=== PATIENT | female | born 1945 | race Caucasian/White ===

== ENCOUNTER 2020-07-18 02:52 | Outpatient (CLI) | payer OTHER, SELFPAY ==
[2020-07-18 10:45] LABS: ALT 23 U/L (14-59); AST 14 U/L (15-37); Albumin 3.9 g/dL (3.4-5.0); Alkaline Phosphatase 52 U/L (46-116); Anion Gap 8.3 mmol/L (3-11); BUN 18 mg/dL (7-18); Bilirubin, Total 0.7 mg/dL (0.2-1.0); CO2 27.7 mmol/L (21.0-32.0); CREATININE 0.75 mg/dL (0.55-1.02); Calcium 8.9 mg/dL (8.5-10.1); Calculated LDL 150 mg/dL (<100); Chloride 104 mmol/L (98-107); Cholesterol 249 mg/dL (<200); Glucose 96 mg/dL (74-106); HDL Cholesterol 90 mg/dL (40-60); Potassium 4.2 mmol/L (3.5-5.1); Sodium 140 mmol/L (136-145); Total Protein 6.7 g/dL (6.4-8.2); Triglyceride 45 mg/dL (<150)
== END 2020-07-18 03:12 ==
DX: E78.5 Hyperlipidemia, unspecified (principal)
CPT/HCPCS: 36415; 80053; 80061

== ENCOUNTER 2021-07-25 04:31 | Outpatient (CLI) | payer MEDICARE, SELFPAY ==
[2021-07-25 10:18] LABS: ALT 45 U/L (14-59); AST 27 U/L (15-37); Albumin 3.7 g/dL (3.4-5.0); Alkaline Phosphatase 60 U/L (46-116); Anion Gap 6.7 mmol/L (3-11); BUN 17 mg/dL (7-18); Bilirubin, Total 0.3 mg/dL (0.2-1.0); CO2 29.3 mmol/L (21.0-32.0); CREATININE 0.7 mg/dL (0.55-1.02); Calcium 9.2 mg/dL (8.5-10.1); Calculated LDL 124 mg/dL (<100); Chloride 104 mmol/L (98-107); Cholesterol 213 mg/dL (<200); Glucose 105 mg/dL (74-106); HDL Cholesterol 79 mg/dL (40-60); Potassium 3.8 mmol/L (3.5-5.1); Sodium 140 mmol/L (136-145); Total Protein 6.4 g/dL (6.4-8.2); Triglyceride 52 mg/dL (<150)
== END 2021-07-25 04:32 | disposition home or self-care (01) ==
LOC: LBO 04:31
DX: E78.5 Hyperlipidemia, unspecified (principal); F41.9 Anxiety disorder, unspecified; Z13.1 Encounter for screening for diabetes mellitus; E78.00 Pure hypercholesterolemia, unspecified
CPT/HCPCS: 36415; 80053; 80061

== ENCOUNTER 2021-08-07 21:37 | Outpatient (REF) | payer MEDICARE, SELFPAY ==
[2021-08-07 22:14] LABS: Bilirubin Negative (Negative); Blood Trace-lysed (Negative); Clarity Cloudy (Clear); Glucose Negative (Negative); Ketones Negative (Negative); Leukocyte Esterase Large (Negative); Nitrite Negative (Negative); Urobilinogen 0.2 EU/dL (Up TO 0.2)
[2021-08-07 22:29] LABS: Magnesium 2.2 mg/dL (1.8-2.4); TSH (W/Ref FT4) 1.15 uIU/mL (0.36-3.74); Vitamin B12 794 pg/mL (193-986)
[2021-08-07 22:33] LABS: Bacteria Negative HPF (Negative); C & S Indicated? Yes; Casts Negative LPF (Negative); Crystals Many Amorphous HPF (Negative); Epithelial Cells Negative HPF (Negative); Mucus Negative (Negative); Other Cells Negative (Negative); RBC Negative HPF (0-2)
== END 2021-08-07 21:38 | disposition home or self-care (01) ==
LOC: LBN 21:37
DX: R41.3 Other amnesia (principal); F41.9 Anxiety disorder, unspecified; G47.00 Insomnia, unspecified; D51.8 Other vitamin B12 deficiency anemias
CPT/HCPCS: 81003; 81015; 82607; 83735; 84443; 87086

== ENCOUNTER 2021-08-11 00:21 | Outpatient (CLI) | payer MEDICARE, SELFPAY ==
--- NOTE | 2021-08-11 13:38 | DI.CT_ITS ---
Exam(s) CT BRAIN NECK CTA EXAM: CT BRAIN NECK CTA CLINICAL HISTORY: CONFUSION/MEMORY CHANGES, R41.0,R41.3. TECHNIQUE: Imaging Protocol: Axial CT angiography was performed with multi-slice acquisition and mu lti-planar and/or 3D reconstructions. CONTRAST MATERIAL: Intravenous: Omnipaque 350 Contrast volume:85 cc COMPARISON: No exams were available for comparison FINDINGS: CT Head W/O and W contrast: Ventricles and Extra axial spaces: Normal in size and morphology for the patient's age. Hemorrhage: None. Cerebral parenchyma: Mild atrophy and mild compensatory dilatation of the ventricles. Midline shift: None. Brainstem/Cerebellum: Normal. Calvarium: Normal. Visualized Paranasal sinuses/Mastoids: Clear. Soft Tissues: Unremarkable. Enhancement: Normal. CTA Brain W: Internal Carotid Arteries: Petrous: Normal. Cavernous: Normal. Cerebral: Normal. Middle Cerebral Arteries: Right: No aneurysm, occlusion or significant stenosis. Left: No aneurysm, occlusion or significant stenosis. Anterior Cerebral Arteries: Right: No aneurysm, occlusion or significant stenosis. Left: No aneurysm, occlusion or significant stenosis. Posterior cerebral Arteries: Right: No aneurysm, occlusion or significant stenosis. Left: No aneurysm, occlusion or significant stenosis. Vertebral Arteries: Right: No aneurysm, occlusion or significant stenosis. Left: No aneurysm, occlusion or significant stenosis. Basilar Artery: No aneurysm, occlusion or significant stenosis. CTA Neck W: Common Carotid: Right: No aneurysm, occlusion or significant stenosis. Left: No aneurysm, occlusion or significant stenosis. External Carotid: Right: No aneurysm, occlusion or significant stenosis. Left: No aneurysm, occlusion or significant stenosis. Internal Carotid: Right: No aneurysm, occlusion or significant stenosis. Left: No aneurysm, occlusion or significant stenosis. Vertebral Artery: Right: No aneurysm, occlusion or significant stenosis. Left: No aneurysm, occlusion or significant stenosis. Lung Apices: Normal. Bones: Normal. Soft Tissues: Normal. IMPRESSION: 1. Normal CTA examination of the [place]. 2. Unremarkable CT Head. 3. Normal CTA examination of the neck. RADIATION DOSE DELIVERED: 1,723.98mGy.cm Total DLP DATA REPOSITORY: All CT scans at this facility are submitted to the National Radiology Data Registry (NRDR) Dose Index Registry (DIR) with the [employer] (ACR). RADIATION OPTIMIZATION: All CT scans at this facility use at least one of these dose optimization te chniques: automated exposure control; mA and/or kV adjustment per patient size (includes targeted exa ms where dose is matched to clinical indication); or iterative reconstruction.
[2021-08-11] MEDS: Omnipaque 350 MG/ML 100 ML BTL 85 ML IJ (13:41)
== END 2021-08-11 00:41 ==
DX: R41.3 Other amnesia (principal); R41.89 Other symptoms and signs involving cognitive functions and awareness; F41.8 Other specified anxiety disorders
CPT/HCPCS: 70496; 70498; J3490

== ENCOUNTER → 2021-08-14 12:51 | Outpatient (BNVA) | payer MEDICARE, SELFPAY | PROVIDERS: Visit Provider Psychiatry & Neurology Neurology | DX: G30.9 Alzheimer's disease, unspecified (principal); F02.80 Dementia in other diseases classified elsewhere, unspecified severity, without behavioral disturbance, psychotic disturbance, mood disturbance, and anxiety; R63.4 Abnormal weight loss | CPT/HCPCS: 99204 ==

== ENCOUNTER → 2021-09-03 10:56 | Outpatient (BNVA) | payer MEDICARE, SELFPAY | PROVIDERS: Visit Provider Psychiatry & Neurology Neurology | DX: G30.9 Alzheimer's disease, unspecified (principal); F02.80 Dementia in other diseases classified elsewhere, unspecified severity, without behavioral disturbance, psychotic disturbance, mood disturbance, and anxiety; R63.4 Abnormal weight loss | CPT/HCPCS: 99214 ==

== ENCOUNTER 2021-09-19 02:20 | Emergency (ER) | payer MEDICARE, SELFPAY ==
[2021-09-19 02:25] VITALS: BP 146/90; PULSE 94; RESP 16; TEMP 36.5; O2SAT 97
--- NOTE | 2021-09-19 02:30 | DI.CT_ITS ---
Exam(s) CT HEAD WO EXAM: CT HEAD WO CLINICAL HISTORY: altered mental status. TECHNIQUE: Imaging Protocol: Axial computed tomography images with coronal and sagittal reformatted images were created and reviewed COMPARISON: CT CT BRAIN NECK CTA from 08/11/2021 FINDINGS: There are no skull fractures nor fluid in the visualized paranasal sinuses. There is no evidence of intracranial hemorrhage, mass effect, or shift of midline structures. There are no extra-axial fluid collections. The ventricles are not enlarged or shifted and there is no blo od within the ventricular system nor within the basal cisterns. IMPRESSION: No acute intracranial findings on this noninfused CT scan of the brain. RADIATION DOSE DELIVERED: 598.8mGy.cm Total DLP DATA REPOSITORY: All CT scans at this facility are submitted to the National Radiology Data Registry (NRDR) Dose Index Registry (DIR) with the [employer] (ACR). RADIATION OPTIMIZATION: All CT scans at this facility use at least one of these dose optimization te chniques: automated exposure control; mA and/or kV adjustment per patient size (includes targeted exa ms where dose is matched to clinical indication); or iterative reconstruction.
--- NOTE | 2021-09-19 02:37 | W.ED.GENAD ---
Discharge Plan Disposition Patient Disposition: HOME Condition: Stable Discharge Details Clinical Impression: Alzheimer disease, Confusion Primary Care Provider: Kierra Morales ED Provider: Melvin Bangura Home Meds and New Rx's Prescriptions: Continued cholecalciferol (vitamin D3) 25 mcg (1,000 unit) tablet 25 mcg PO DAILY 0RF cyanocobalamin (vitamin B-12) 1,000 mcg capsule 1,000 mcg PO DAILY 0RF choline 500 mg tablet 500 mg PO DAILY 0RF calm/magnesium powder PO 0RF Label Comments: Pt takes 1/2 tsp in the evening ascorbic acid (vitamin C) 500 mg powder in packet 500 mg PO DAILY 0RF mirtazapine 15 mg tablet 15 mg PO QHS Qty: 30 5RF Discharge Instructions Instructions: Dementia (ED) Additional Instructions: follow up with your neurologist and primary care provider if you feel more ill, have fevers or difficulty breathing return to the emergency department Medical Decision Making 75 yo female with hx of alzheimer's, hld, who lives with her and comes in with ems with confusion. I called and spoke with her Adam to get information and he states that she has periods where she will be fine for a few days acting normal but then every so often she will have a day or two where she will not recognize him and talk about random things (the example he used was her talking her mother's car bat great lengths). Tonight she grabbed the keys and was acting as though she was going to drive somewhere in the middle of the night and seemed agitated per Adam and so he called ems who then transferred her here. She arrives calm and speaking clearly. When asked why she is here she says for her finger and on her right index finger she has a small 1cm skin tear and she states she got it caught on something, she has no bleeding and it is superficial. She is oriented to self and place, doesn't know the year despite being told it by nursing just prior to my exam. She denies any pain anywhere. She denies any dyspnea, abdominal pain, n/v. I suspect the episode tonight was from her underlying dementia, will evaluate for possible hyponatremia and given her age obtain ct head to evaluate for abnormalities such as subdural, she has no focal deficits to suggest cva. Discussed with and he is willing to take her back home if she is calm here and workup here is benign. labs and imaging show no acute findings and she remains calm, is sleeping on reassessment but easily awakens and has no complaints. Discussed with and he is comfortable brining her home. Advised to f/u with pcp and return precautions given Differential Diagnosis Differential Diagnosis: dementia, electrolyte abnormality Medical Records Medical records reviewed: Yes I reviewed the patient's medical records. Lab Data Lab results reviewed: Yes I reviewed the patient's lab results. HPI General Mode of arrival: EMS. Date/Time Provider Initiated Documentation: 09/19/21 02:22. Information obtained by: patient, family and EMS. History of Present Illness 75 year old F presents to the emergency department with the chief complaint of altered mental status, described as moderate, Patient started experiencing this hour(s) (3) and it has been intermittent. improves with No relieving factors improve symptom(s), No exacerbating factors reported . Patient did receive the following treatments prior to arrival, none Related Data Home Medications Medication Instructions Recorded Confirmed ascorbic acid (vitamin C) 500 mg 500 mg PO DAILY ea 07/21/21 09/19/21 oral powder packet calm/magnesium PO 07/21/21 09/03/21 cholecalciferol (vitamin D3) 25 25 mcg PO DAILY 07/21/21 09/19/21 mcg (1,000 unit) tablet choline 500 mg tablet 500 mg PO DAILY 07/21/21 09/19/21 cyanocobalamin (vitamin B-12) 1,000 mcg PO DAILY 07/21/21 09/19/21 1,000 mcg capsule mirtazapine 15 mg tablet 15 mg PO QHS #30 tab 09/11/21 09/19/21 Previous Rx's Medication Instructions Recorded mirtazapine 15 mg tablet 15 mg PO QHS #30 tab 09/11/21 Allergies Allergy/AdvReac Type Severity Reaction Status Date / Time No Known Allergies Allergy Verified 09/19/21 02:32 General Stated Complaint: AMS/LOC TAMEKA: 2 Review of Systems All systems reviewed & are unremarkable except as noted in HPI and below Constitutional Constitutional: Denies chills, Denies fever(s) and Denies weakness Eyes Eyes: Denies loss of vision ENT Ears, Nose, Mouth, and Throat: Denies change in voice Cardiovascular Cardiovascular: Denies chest pain and Denies dyspnea Respiratory Respiratory: Denies cough and Denies dyspnea Gastrointestinal Gastrointestinal: Denies abdominal pain, Denies nausea and Denies vomiting Neurologic Neurologic: Denies loss of vision and Denies weakness PFSH All Active Problems (Updated 09/19/21 @ 04:07 by Melvin Bangura MD) Confusion (Acute) Weight loss (Acute) Alzheimer disease (Chronic) Advanced directives, counseling/discussion (Acute) Ear canal dryness (Acute) Anxiety (Chronic) Encounter for annual physical exam (Acute) Skin lesion (Acute) Hyperlipidemia (Chronic) Plantar wart, right foot (Acute 06/29/17) Neck pain (Acute 02/23/17) Family history of GI malignancy (Acute) colon ca Actinic keratosis (Acute 06/29/17) Surgical History (Updated 08/27/21 @ 15:22 by Lucy Elmore MD) History of appendectomy History of discectomy History of spinal surgery Family History Mother Essential hypertension Personal history of malignant neoplasm LIVER METS Father Personal history of malignant neoplasm Sarcoma Maternal Grandfather Prostate cancer Paternal Grandfather Heart disease Parkinson's disease Maternal Grandmother Diabetes CHF (congestive heart failure) Heart disease Paternal Grandmother Aortic aneurysm Brother No problems noted. Brother No problems noted. Brother No problems noted. Son No problems noted. Son No problems noted. Daughter No problems noted. Social History Smoking/Tobacco Use Status: Never Second Hand Exposure: No Smoking risk assessment performed?: Yes Alcohol Intake: never Drug use: Never Substance use type: does not use Counseling given: No Counseling provided: none Caregiver/Support person: No Housing: house Number of Children: 3 Do you need help understanding health information?: Rarely current occupation: Retired Pets and animals: No Sexually active: No Do you think of yourself as: straight/heterosexual Current gender identity: female What is your relationship status?: How often do you talk on the phone with friends or family?: three or more times per week How often do you attend holiness or evangelical services?: 1-3 times per year Do you belong to any clubs or organized social groups?: no Panel score (0-1 are the most socially isolated patients): 2 Keturah/Mormonism: Zoroastrianism Seatbelt use: always Drive intox or ride w/intox roll off driver: No Victim of physical abuse: No Victim of emotional abuse: No Victim of sexual abuse: No Would you like helpful sources: No Additional Social history: pt is unable to answer Exam Const General: no acute distress Orientation: alert HENMT Head: normal to inspection Ears: external ears normal General nose exam: external nose normal Mouth: moist mucous membranes Eyes General: appearance normal, both eyes and all related structures Neck Neck: normal visual inspection Resp Effort & Inspection: normal respiratory effort and able to speak in complete sentences Cardio Rate: regular rate Skin General skin exam: no rashes or lesions noted Neuro General: patient alert Extrem General: normal to inspection Psych Mental Status: mental status grossly normal Course Vital Signs Vital signs: Vital Signs Temperature 36.5 C 09/19/21 02:25 Pulse 94 H 09/19/21 02:25 Respiratory Rate 16 09/19/21 02:25 Blood Pressure 146/90 H 09/19/21 02:25 Pulse Oximetry 97 09/19/21 02:25 Temperature 36.5 C 09/19/21 02:25 Temperature Source Oral 09/19/21 02:25 Pulse 94 H 09/19/21 02:25 Respiratory Rate 16 09/19/21 02:25 Blood Pressure 146/90 H 09/19/21 02:25 Pulse Oximetry 97 09/19/21 02:25 Oxygen Delivery Method Room Air 09/19/21 02:25 Oxygen Flow Rate 0 09/19/21 02:25 Pain Level 0 09/19/21 02:25
[2021-09-19 02:54] LABS: Bilirubin Negative (Negative); Blood Negative (Negative); Clarity Clear (Clear); Glucose Negative (Negative); Ketones Negative (Negative); Leukocyte Esterase Negative (Negative); Nitrite Negative (Negative); Urobilinogen 0.2 EU/dL (Up TO 0.2)
[2021-09-19 02:54] LABS: Abs Immature Grans 0.01 10^3/uL (0.0-0.06); Absolute Basophil Count 0.07 10^3/uL (0.0-0.2); Absolute Eosinophil Count 0.08 10^3/uL (0.0-0.7); Absolute Lymphocyte Count 1.94 10^3/uL (1.2-3.4); Absolute Monocyte Count 0.42 10^3/uL (0.1-0.8); Absolute Neutrophil Count 4.06 10^3/uL (1.2-6.7); Basophils % 1.1; Eosinophils % 1.2; HGB 13.7 g/dL (11.2-15.7); Immature Grans % 0.2; Lymphocytes % 29.5; MCH 29.5 pg (27.0-33.0); MCHC 31.9 % (32.0-36.0); MCV 92.5 fL (80-95); MPV 9.9 fL (8.0-11.0); Monocytes % 6.4; Neutrophils % 61.6; Nucleated RBC 0 %; Platelet Count 253 10^3/uL (130-400); RBC 4.65 10^6/uL (3.93-5.22); RDW 13.8 % (11.7-14.6); RDW-SD 47.3 fL; WBC 6.58 10^3/uL (4.4-10.8)
[2021-09-19 03:15] LABS: ALT 34 U/L (14-59); AST 22 U/L (15-37); Albumin 3.7 g/dL (3.4-5.0); Alkaline Phosphatase 60 U/L (46-116); Anion Gap 9.3 mmol/L (3-11); BUN 22 mg/dL (7-18); Bilirubin, Total 0.3 mg/dL (0.2-1.0); CO2 25.7 mmol/L (21.0-32.0); CREATININE 0.8 mg/dL (0.55-1.02); Calcium 8.9 mg/dL (8.5-10.1); Chloride 108 mmol/L (98-107); Glucose 121 mg/dL (74-106); Potassium 3.8 mmol/L (3.5-5.1); Sodium 143 mmol/L (136-145)
--- NOTE | 2021-09-19 03:39 | DI.VRAD_ITS ---
PROCEDURE INFORMATION: Exam: CT Head Without Contrast Exam date and time: 09/19/2021 2:41 AM Age: 75 years old Clinical indication: Altered mental status/memory loss; Confusion or disorientation; Additional info: AMS TECHNIQUE: Imaging protocol: Computed tomography of the head without contrast. Radiation optimization: All CT scans at this facility use at least one of these dose optimization techniques: automated exposure control; mA and/or kV adjustment per patient size (includes targeted exams where dose is matched to clinical indication); or iterative reconstruction. COMPARISON: CT BRAIN NECK CTA 08/11/2021 1:11 PM FINDINGS: Brain: There are periventricular white matter lucencies compatible with chronic microvascular ischemic disease. No intracranial hemorrhage. No mass effect or midline shift. Cerebral ventricles: The ventricles and sulci are prominent compatible with age-related involutional changes. Paranasal sinuses: Visualized sinuses are unremarkable. No fluid levels. Mastoid air cells: Visualized mastoid air cells are well aerated. Bones/joints: Unremarkable. No acute fracture. Soft tissues: Unremarkable. IMPRESSION: No acute findings. Dictated and Authenticated by: Murray Gottlieb MD. Ordering:LEONEL Charles MD
== END 2021-09-19 06:29 | disposition home or self-care (01) ==
PROVIDERS: Emergency Provider Emergency Medicine
DX: G30.8 Other Alzheimer's disease (principal); F02.80 Dementia in other diseases classified elsewhere, unspecified severity, without behavioral disturbance, psychotic disturbance, mood disturbance, and anxiety; F05 Delirium due to known physiological condition; R41.82 Altered mental status, unspecified
CPT/HCPCS: 36415; 80053; 99284; 70450; 81003; 85025; 99283

== ENCOUNTER 2021-10-01 02:25 | Outpatient (CLI) | payer MEDICARE, SELFPAY ==
[2021-10-01 16:32] LABS: Iron 93 ug/dL (50-170); Total Iron Binding Capacity 265 ug/dL (250-450); Transferrin Sat 35 % (15-50)
[2021-10-03 09:36] LABS: Homocysteine 10.5 umol/L (5.0-13.9)
[2021-10-04 14:21] LABS: Thiamine (Vitamin B1), WB 141 nmol/L (70-180)
== END 2021-10-01 02:26 | disposition home or self-care (01) ==
LOC: LBO 02:25
PROVIDERS: Visit Provider Family Medicine
DX: F02.80 Dementia in other diseases classified elsewhere, unspecified severity, without behavioral disturbance, psychotic disturbance, mood disturbance, and anxiety (principal); G30.9 Alzheimer's disease, unspecified; R41.0 Disorientation, unspecified
CPT/HCPCS: 83090; 83540; 83550; 84425

== ENCOUNTER → 2021-11-20 08:56 | Outpatient (BNVA) | payer MEDICARE, SELFPAY | PROVIDERS: Visit Provider Psychiatry & Neurology Neurology | DX: F02.81 Dementia in other diseases classified elsewhere, unspecified severity, with behavioral disturbance (principal); G30.9 Alzheimer's disease, unspecified; R63.4 Abnormal weight loss | CPT/HCPCS: 99215 ==

== ENCOUNTER → 2021-12-18 14:49 | Outpatient (BNVA) | payer MEDICARE, SELFPAY | PROVIDERS: Visit Provider Psychiatry & Neurology Neurology | DX: G30.9 Alzheimer's disease, unspecified (principal); F02.80 Dementia in other diseases classified elsewhere, unspecified severity, without behavioral disturbance, psychotic disturbance, mood disturbance, and anxiety; R63.4 Abnormal weight loss | CPT/HCPCS: 99215 ==

== ENCOUNTER → 2022-02-11 10:21 | Outpatient (BNVA) | payer MEDICARE, SELFPAY | PROVIDERS: Visit Provider Psychiatry & Neurology Neurology | DX: F02.81 Dementia in other diseases classified elsewhere, unspecified severity, with behavioral disturbance (principal); F41.9 Anxiety disorder, unspecified; G30.9 Alzheimer's disease, unspecified | CPT/HCPCS: 99214 ==

== ENCOUNTER → 2022-04-15 10:32 | Outpatient (BNVA) | payer MEDICARE, SELFPAY | PROVIDERS: PCP Family Medicine; Referring Provider Family Medicine; Visit Provider Psychiatry & Neurology Neurology | DX: G30.9 Alzheimer's disease, unspecified (principal); F02.811 Dementia in other diseases classified elsewhere, unspecified severity, with agitation; R41.89 Other symptoms and signs involving cognitive functions and awareness; R63.4 Abnormal weight loss | CPT/HCPCS: 99214 ==

== ENCOUNTER → 2022-06-17 10:25 | Outpatient (BNVA) | payer MEDICARE, SELFPAY | PROVIDERS: PCP Nurse Practitioner Family; Referring Provider Nurse Practitioner Family; Visit Provider Psychiatry & Neurology Neurology | DX: G30.9 Alzheimer's disease, unspecified (principal); F02.811 Dementia in other diseases classified elsewhere, unspecified severity, with agitation; R41.89 Other symptoms and signs involving cognitive functions and awareness; R63.4 Abnormal weight loss | CPT/HCPCS: 99214 ==

== ENCOUNTER → 2022-08-19 11:13 | Outpatient (BNVA) | payer MEDICARE, SELFPAY | PROVIDERS: PCP Nurse Practitioner Family; Referring Provider Nurse Practitioner Family; Visit Provider Psychiatry & Neurology Neurology | DX: G30.9 Alzheimer's disease, unspecified (principal); F02.811 Dementia in other diseases classified elsewhere, unspecified severity, with agitation; R63.4 Abnormal weight loss | CPT/HCPCS: 99214 ==

== ENCOUNTER 2022-09-18 11:59 | Outpatient (REF) | payer MEDICARE, SELFPAY ==
--- NOTE | 2022-09-18 09:00 | SKI_PTH ---
PATIENT: Linda Jean LOC: [facility] U#:[id number] AGE/SX: 76/F ROOM: RE09/18/[address]: Wyatt Goddard DO : 1945 BED: DIS: 09/18/2022 SPEC #: [id number] RECD: 09/18/22 16:24 STATUS: ALYSSA REQ #: [id number] MARY: 09/18/22 09:[address]: Wyatt Goddard DEPT: Surgical Specimen RECD BY: Judith Mart ENTERED: 09/18/22 16:24 SP TYPE: SKI OT DR: Deepak Jefferson DNP Tissues: 1 - SKIN BIOPSY(SHAVE/PUNCH) 2 - SKIN BIOPSY(SHAVE/PUNCH) Procedures: SKIN LEVEL 4 Comments: [id number]
--- OUTSIDE RECORDS SUMMARY | 2022-09-18 12:01 | XMS_ITS ---
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 Active 377698727 Problem Alzheimer's disease G30.9 Active 2692 9004 ALLERGIES No Known Allergies ENCOUNTERS Encounter Location Date Diagnosis [facility] [address], [address] [place], [place] [id number] Sep, Atypical pigmented lesion L81.9 and Non-healing skin lesion L98.9 [facility] [address], [address] [place], [place] [id number] Aug, IMMUNIZATIONS No Known Immunizations SOCIAL HISTORY Qualifiers Date Never Smoker REASON FOR REFERRAL FUNCTIONAL STATUS PLAN OF CARE Activity Details VITAL SIGNS Height 5 ft 2 in in 2022-09-18 Weight 119 lbs 2022-09-18 BMI 21.76 kg/m2 2022-09-18 MEDICATIONS Medication Instructions Dosage Frequency Start Date End Date Duration Status Mirtazapine 7.5 MG Orally Once a day 1 tablet at bedtime 24h Active QUEtiapine Fumarate 25 MG Orally Once a day 1 tablet at bedtime 24h 30 day(s) Active Choline Active Cholecalciferol 25 MCG (1000 UT) Orally Once a day 1 capsule 24h 30 day(s) Active Donepezil HCl 5 MG Orally Once a day 1 tablet at bedtime 24h 30 day(s) Active Cyanocobalamin 1000 MCG Orally Once a day 1 tablet 24h 30 day(s) Active Ascorbic Acid 500 MG Orally Once a day 1 tablet 24h 30 day(s) Active PROCEDURES Procedure Date Ordered Result Body Site SHAVE TRUNK/EXT 0.6-1.0CM September 18, 2022 SHAVE TRUNK/EXT 0.6-1.0CM September 18, 2022 RESULTS No Results REASON FOR VISIT ENT [employer] Skin lesion, pfp New Consult, PFP Shave Excision, Chart Preload Insurance Providers Health Insurance Type Health Plan Insurance Address Health Plan Insurance Phone Health Plan Insurance Name Health Plan Coverage Dates Member ID Patient Relationship to Subscriber Patient Address Patient Phone Patient Name Patient Date of Subscriber ID Subscriber Name Subscriber Date of Group No [facility] [employer] [address] [address] [facility] [address] [facility] GLOBAL self Linda Jean [id number]
== END 2022-09-18 12:00 | disposition home or self-care (01) ==
LOC: LBN 11:59
PROVIDERS: PCP Nurse Practitioner Family; Visit Provider Otolaryngology Otolaryngology/Facial Plastic Surgery
DX: L81.9 Disorder of pigmentation, unspecified (principal)
CPT/HCPCS: 88305

== ENCOUNTER → 2022-10-14 10:26 | Outpatient (BNVA) | payer MEDICARE, SELFPAY | PROVIDERS: PCP Nurse Practitioner Family; Referring Provider Nurse Practitioner Family; Visit Provider Psychiatry & Neurology Neurology | DX: G30.9 Alzheimer's disease, unspecified (principal); F02.818 Dementia in other diseases classified elsewhere, unspecified severity, with other behavioral disturbance; R41.89 Other symptoms and signs involving cognitive functions and awareness; R63.4 Abnormal weight loss | CPT/HCPCS: 99214 ==

== ENCOUNTER → 2022-12-16 12:51 | Outpatient (BNVA) | payer MEDICARE, SELFPAY | PROVIDERS: PCP Nurse Practitioner Family; Referring Provider Nurse Practitioner Family; Visit Provider Psychiatry & Neurology Neurology | DX: G30.9 Alzheimer's disease, unspecified (principal); F02.82 Dementia in other diseases classified elsewhere, unspecified severity, with psychotic disturbance; R63.4 Abnormal weight loss | CPT/HCPCS: 99214 ==

== ENCOUNTER → 2023-04-21 10:48 | Outpatient (BNVA) | payer MEDICARE, SELFPAY | PROVIDERS: PCP Nurse Practitioner Family; Referring Provider Nurse Practitioner Family; Visit Provider Psychiatry & Neurology Neurology | DX: G30.9 Alzheimer's disease, unspecified (principal); F02.811 Dementia in other diseases classified elsewhere, unspecified severity, with agitation; R63.4 Abnormal weight loss | CPT/HCPCS: 99215 ==

== ENCOUNTER → 2023-11-17 11:27 | Outpatient (BNVA) | payer MEDICARE, SELFPAY | PROVIDERS: PCP Nurse Practitioner Family; Referring Provider Nurse Practitioner Family; Visit Provider Psychiatry & Neurology Neurology | DX: R63.4 Abnormal weight loss (principal); G30.9 Alzheimer's disease, unspecified; F02.80 Dementia in other diseases classified elsewhere, unspecified severity, without behavioral disturbance, psychotic disturbance, mood disturbance, and anxiety | CPT/HCPCS: 99214 ==

== ENCOUNTER → 2024-04-24 15:27 | Outpatient (BNVA) | payer MEDICARE, SELFPAY | PROVIDERS: PCP Nurse Practitioner Family; Visit Provider Psychiatry & Neurology Neurology | DX: G30.9 Alzheimer's disease, unspecified (principal); F02.80 Dementia in other diseases classified elsewhere, unspecified severity, without behavioral disturbance, psychotic disturbance, mood disturbance, and anxiety; R63.4 Abnormal weight loss | CPT/HCPCS: 99215 ==

== ENCOUNTER 2024-08-02 13:48 | Outpatient (CLI) | payer MEDICARE, SELFPAY ==
[2024-08-02 14:02] LABS: Abs Immature Grans 0.01 10^3/uL (0.0-0.06); Absolute Basophil Count 0.07 10^3/uL (0.0-0.2); Absolute Eosinophil Count 0.12 10^3/uL (0.0-0.7); Absolute Lymphocyte Count 2.51 10^3/uL (1.2-3.4); Absolute Monocyte Count 0.47 10^3/uL (0.1-0.8); Absolute Neutrophil Count 4.33 10^3/uL (1.2-6.7); Basophils % 0.9 %; Eosinophils % 1.6 %; HCT 44.1 % (36.0-46.0); Immature Grans % 0.1 %; Lymphocytes % 33.4 %; MCHC 31.7 % (32.0-36.0); MCV 92 fL (80-95); MPV 9.9 fL (8.0-11.0); Monocytes % 6.3 %; Neutrophils % 57.7 %; Platelet Count 242 10^3/uL (130-400); RBC 4.82 10^6/uL (3.93-5.22); RDW 13.7 % (11.7-14.6); RDW-SD 46.5 fL; WBC 7.51 10^3/uL (4.4-10.8)
[2024-08-02 15:04] LABS: ALT 23 U/L (14-59); AST 18 U/L (15-37); Albumin 3.6 g/dL (3.4-5.0); Alkaline Phosphatase 104 U/L (46-116); Anion Gap 8.1 mmol/L (3-11); BUN 15 mg/dL (7-18); Bilirubin, Total 0.35 mg/dL (0.2-1.0); CO2 29.9 mmol/L (21.0-32.0); CREATININE 0.8 mg/dL (0.55-1.02); Calcium 9.3 mg/dL (8.5-10.1); Chloride 106 mmol/L (98-107); Estimated GFR 76.31 (mL/min/1.73m2); Glucose 96 mg/dL (74-106); Potassium 3.7 mmol/L (3.5-5.1); Sodium 144 mmol/L (136-145); Total Protein 7.4 g/dL (6.4-8.2)
== END 2024-08-02 13:49 | disposition home or self-care (01) ==
LOC: LBO 13:49
PROVIDERS: PCP Nurse Practitioner Family; Visit Provider Psychiatry & Neurology Neurology
DX: R40.4 Transient alteration of awareness (principal)
CPT/HCPCS: 36415; 80053; 99214; 85025

== ENCOUNTER 2024-08-02 14:25 | Outpatient (CLI) | payer MEDICARE, SELFPAY ==
--- NOTE | 2024-08-02 14:15 | RT.EKG_ITS ---
APPROVED REPORT Exam: Resting ECG Reason for Exam: syncope vs seizure Patient Location: O HR:87 bpm ECG Measurements Heart Rate 87 AXIS MN 181 P 37 QRSd 98 QRS 26 QT 380 T -12 QTc 457 Conclusion Sinus rhythm...normal P axis, V-rate 50- 99 Low voltage, precordial leads...precordial leads <1.0mV leads...ST >0.06mV, II III aVF Baseline wander in lead(s) V1
== END 2024-08-02 14:26 | disposition home or self-care (01) ==
LOC: CARDOPNVT 14:25
PROVIDERS: PCP Nurse Practitioner Family; Visit Provider Psychiatry & Neurology Neurology
DX: R40.4 Transient alteration of awareness (principal)
CPT/HCPCS: 93005; 93010

== ENCOUNTER 2024-08-10 04:51 | Outpatient (CLI) | payer MEDICARE, SELFPAY ==
--- NOTE | 2024-08-10 21:32 | PDOC.EEG_ITS ---
Neurology EEG EEG: [facility] Department of Neurology EEG REPORT Date of Recordin08/10/24 Interpreting Physician: Dr. Jeanne Wang PCP/Referring Provider: Deepak Fair NP Reason for study: Linda Jean is a 78 year-old with Alzheimer's dementia who has a recent episode of LOC. Current Medications: Home Medications ?Medication ?Instructions ?Recorded ?Confirmed ?Type ascorbic acid (vitamin C) 500 mg 500 mg PO DAILY 07/21/21 08/06/24 History oral powder packet cholecalciferol (vitamin D3) 25 25 mcg PO DAILY 07/21/21 08/06/24 History mcg (1,000 unit) tablet choline 500 mg tablet 500 mg PO DAILY 07/21/21 08/06/24 History cyanocobalamin (vitamin B-12) 1,000 mcg PO DAILY 07/21/21 08/06/24 History 1,000 mcg capsule mirtazapine 7.5 mg tablet 7.5 mg PO QHS #90 tabs 10/25/23 08/06/24 Rx memantine 10 mg tablet See Rx Instructions .Route 04/24/24 08/06/24 Rx .COMPLEX #200 tabs quetiapine 25 mg tablet 12.5 mg (1/2 x 25 mg) PO DAILY #30 05/16/24 08/06/24 Rx tabs olanzapine 2.5 mg tablet 2.5 mg PO BID PRN 06/02/24 08/06/24 History donepezil 10 mg tablet 10 mg PO DAILY #90 tabs 08/03/24 08/06/24 Rx METHODS: A 21 channel digitized electroencephalogram was performed in the [facility] Clinical Neurophysiology Laboratory. The 10/20 international system of electrode placement was used and bipolar and referential electrode montages were recorded. In addition to EEG the patient was monitored for EKG and lateral/vertical eye movements. Activation procedures of photic stimulation and hyperventilation were performed if applicable. Video was used during activation procedures and during events where applicable. The duration of the recording was 30 minutes. DESCRIPTION OF EEG: The patient was noted to be awake, drowsy, and asleep during the recording. During maximal wakefulness a 9-Hz posterior background rhythm was present which was well-modulated, symmetrical, reactive to eye opening, and of moderate voltage. With eye opening the background activity changed to a low voltage mixture of alpha, beta, and occasional theta range frequencies. Faster frequencies were present in the bilateral anterior head regions. There was a normal anterior-posterior voltage gradient. During drowsiness, there was attenuation of the posterior dominant background rhythm and vertex waves. Stage II sleep was present with symmetrical sleep spindles, K-complexes, and vertex waves. There was frequent FIRDA seen during wakefulness at times associated with rhythmic cwjtx-eti-rlvl-wave and dbuvn-zdz-rsxo-waves predominantly at F3, but also occurring at Fp1 and Fp2. Activating Procedures: Photic stimulation was performed which produced an asymmetrical driving response in the right hemisphere only. Hyperventilation was not performed. EKG: EKG revealed an irregularly irregular rhythm which was predominantly bradycardic. INTERPRETATION: This EEG is abnormal due to: #1. Predominantly F3 >Fp1/Fp2 spike-wave and sharp waves. #2. Frequent FIRDA. #3. Asymmetric photic response with lack of response in the left hemisphere. #4. Irregular bradycardic EKG. PRIOR EEG: none CLINICAL CORRELATION: An abundance of findings with most pertinent being the interictal expression of a localization-related epilepsy, indicating the patient is at increased risk for partial and secondary tonic-clonic seizures. The FIRDA could be part of this epileptic process or be part of the Alzheimers process. The asymmetric photic response could represent an area of focal cerebral dysfunction involving the left hemisphere. Consider imaging if not already done so. Finally, an abnormal EKG was noted as well. Clinical correlation is advised. Jeanne Wang MD Date of service: 08/10/24
== END 2024-08-10 04:52 | disposition home or self-care (01) ==
LOC: RT 04:52
PROVIDERS: PCP Nurse Practitioner Family; Visit Provider Psychiatry & Neurology Neurology
DX: R40.4 Transient alteration of awareness (principal); R55 Syncope and collapse
CPT/HCPCS: 95819

== ENCOUNTER → 2024-08-14 08:44 | Outpatient (BNVA) | payer MEDICARE, SELFPAY | PROVIDERS: PCP Nurse Practitioner Family; Referring Provider Nurse Practitioner Family; Visit Provider Psychiatry & Neurology Neurology ==

== ENCOUNTER → 2024-09-26 12:22 | Outpatient (BNVA) | payer MEDICARE, SELFPAY | PROVIDERS: PCP Nurse Practitioner Family; Referring Provider Nurse Practitioner Family; Visit Provider Psychiatry & Neurology Neurology | DX: R40.4 Transient alteration of awareness (principal); G30.9 Alzheimer's disease, unspecified; F02.80 Dementia in other diseases classified elsewhere, unspecified severity, without behavioral disturbance, psychotic disturbance, mood disturbance, and anxiety; R63.4 Abnormal weight loss | CPT/HCPCS: 99215 ==

== ENCOUNTER 2024-10-06 12:25 | Emergency (ER) | payer MEDICARE, SELFPAY ==
[2024-10-06 12:29] VITALS: BP 124/56; PULSE 81; RESP 20; TEMP 36.7; O2SAT 97
--- NOTE | 2024-10-06 13:30 | RT.EKG_ITS ---
APPROVED REPORT Exam: Resting ECG Reason for Exam: syncope Patient Location: E HR:68 bpm ECG Measurements Heart Rate 68 AXIS IA 173 P 46 QRSd 88 QRS -26 QT 413 T 12 QTc 429 Conclusion Sinus rhythm...normal P axis, V-rate 60- 99 Low voltage, precordial leads...precordial leads <1.0mV
[2024-10-06 14:25] LABS: ALT 28 U/L (14-59); AST 19 U/L (15-37); Albumin 3.3 g/dL (3.4-5.0); Alkaline Phosphatase 97 U/L (46-116); Anion Gap 10.6 mmol/L (3-11); BUN 17 mg/dL (7-18); Bilirubin, Total 0.3 mg/dL (0.2-1.0); CO2 29.4 mmol/L (21.0-32.0); CREATININE 0.7 mg/dL (0.55-1.02); Calcium 8.9 mg/dL (8.5-10.1); Chloride 108 mmol/L (98-107); Estimated GFR 89.58 (mL/min/1.73m2); Glucose 99 mg/dL (74-106); Magnesium 2.2 mg/dL (1.8-2.4); Sodium 148 mmol/L (136-145); Total Protein 6.6 g/dL (6.4-8.2); Troponin I 5 ng/L (<or=51)
[2024-10-06 14:55] LABS: Abs Immature Grans 0.03 10^3/uL (0.0-0.06); Absolute Basophil Count 0.04 10^3/uL (0.0-0.2); Absolute Eosinophil Count 0.03 10^3/uL (0.0-0.7); Absolute Lymphocyte Count 1.32 10^3/uL (1.2-3.4); Absolute Monocyte Count 0.52 10^3/uL (0.1-0.8); Absolute Neutrophil Count 7.38 10^3/uL (1.2-6.7); Basophils % 0.4 %; Eosinophils % 0.3 %; HCT 42.1 % (36.0-46.0); HGB 13.6 g/dL (11.2-15.7); Immature Grans % 0.3 %; Lymphocytes % 14.2 %; MCH 28.9 pg (27.0-33.0); MCHC 32.3 % (32.0-36.0); MCV 90 fL (80-95); MPV 11.1 fL (8.0-11.0); Monocytes % 5.6 %; Neutrophils % 79.2 %; Platelet Count 266 10^3/uL (130-400); RDW 13.7 % (11.7-14.6); RDW-SD 45.2 fL; WBC 9.32 10^3/uL (4.4-10.8)
--- NOTE | 2024-10-06 15:25 | DI.CT_ITS ---
Exam(s) CT HEAD CERV SPINE FACIAL WO EXAM: CT HEAD CERV SPINE FACIAL WO CLINICAL HISTORY: trauma, fall from standing, syncope. TECHNIQUE: Imaging Protocol: Axial computed tomography images with coronal and sagittal reformatted images were created and reviewed COMPARISON: CT CT BRAIN NECK CTA from 08/11/[address] HEAD WO from 09/19/2021 FINDINGS: CT Head: Ventricles and Extra axial spaces: Mildly prominent but unchanged. Hemorrhage: None. Cerebral parenchyma: No evidence of acute hemorrhage or acute infarct. Midline shift: None. Brainstem/Cerebellum: Normal. Calvarium: Normal. Visualized Paranasal sinuses/Mastoids: Clear. Soft Tissues: Unremarkable. CT Face: Facial Bones: No fracture is noted in facial bones. Sinuses and Mastoids: Unremarkable. Globes, extraocular muscles, optic nerves and retrobulbar fat: Normal. Upper aerodigestive tract: Normal. Mandible and bilateral temporomandibular joints: Normal. Soft tissues: Normal. CT Cervical Spine: Exam is mildly limited by motion. Bones: No acute fracture or subluxation. Degenerative changes. Soft Tissues: Unremarkable. Lung Apices: Clear. IMPRESSION: 1. No acute intracranial process. 2. No acute fracture or subluxation in the cervical spine. 3. No acute facial fracture. RADIATION DOSE DELIVERED: Total DLP DATA REPOSITORY: All CT scans at this facility are submitted to the National Radiology Data Registry (NRDR) Dose Index Registry (DIR) with the [employer] (ACR). RADIATION OPTIMIZATION: All CT scans at this facility use at least one of these dose optimization te chniques: automated exposure control; mA and/or kV adjustment per patient size (includes targeted exa ms where dose is matched to clinical indication); or iterative reconstruction.
--- NOTE | 2024-10-06 15:26 | DI.CT_ITS ---
Exam(s) CT CHEST/ABD/PEL W EXAM: CT CHEST/ABD/PEL W CLINICAL HISTORY: trauma, fall from standing, syncope. TECHNIQUE: Imaging Protocol: Axial computed tomography images with coronal and sagittal reformatted images were created and reviewed. Computer aided detection (CAD) was utilized. CONTRAST MATERIAL: Intravenous: Omnipaque 350 Contrast volume:70 ml Oral: no COMPARISON: CT CT BRAIN NECK CTA from 08/11/2021 FINDINGS: CHEST: Pulmonary parenchyma: Mildly limited evaluation due to respiratory motion. Dependent changes. No co nsolidation. No dominant measurable mass. Tracheobronchial tree: No bronchiectasis. No mucous plugging.No bronchial wall thickening. Pleura: No effusion or pneumothorax. Mediastinum: Within normal limits. Pulmonary arteries: No visible emboli. Cardiovascular: No pericardial effusion. Thoracic aorta non-dilated. Bones: Unremarkable for age. No lytic or blastic lesions.No compression fractures. Soft tissues: Unremarkable. ABDOMEN and PELVIS: The exam is limited by streak attic artifact secondary to rings on the patient's fingers. Patient wa s unable to cooperate with the exam. Liver: Normal density. No suspicious mass. Gallbladder and biliary tract: No evidence of stones or wall thickening. No biliary dilatation. Pancreas: Normal density, no abnormal calcifications or inflammatory process. Spleen: Normal. Kidneys: Normal size, contour and axis. No radiodense stones. No obstructive uropathy. No suspicious masses seen. Adrenal glands: No masses seen. Aorta: Abdominal portion non-dilated. Lymph nodes: Within normal limits. Soft tissues: Unremarkable. Bladder: Unremarkable. Bowel: There is a large quantity of stool distending the rectum which measures 9 cm in diameter and 1 3 cm cephalo caudad dimension. The remainder of the colon of shows a small amount of stool. There i s extensive diverticulosis. No obstruction or bowel wall thickening. Peritoneal cavity: No ascites. No focal collection. No mesenteric inflammatory response. No free ai r. Bones: Unremarkable for age. Reproductive organs: Unremarkable for age. IMPRESSION: No acute abnormality in the chest, abdomen or pelvis. Large quantity of stool is noted distending the rectum. RADIATION DOSE DELIVERED: Total DLP DATA REPOSITORY: All CT scans at this facility are submitted to the National Radiology Data Registry (NRDR) Dose Index Registry (DIR) with the [employer] (ACR). RADIATION OPTIMIZATION: All CT scans at this facility use at least one of these dose optimization te chniques: automated exposure control; mA and/or kV adjustment per patient size (includes targeted exa ms where dose is matched to clinical indication); or iterative reconstruction.
[2024-10-06] MEDS: Normal Saline - Diluent 50 ML VIAL IJ (15:27)
[2024-10-06] MEDS: Omnipaque 350 MG/ML 100 ML BTL 70 ML IJ (15:27)
--- NOTE | 2024-10-06 15:50 | ED.GENADUL_ITS ---
Discharge Plan Disposition Patient Disposition: Home Condition: Stable Discharge Details Clinical Impression: Fall, Contusion of face, Syncope, Contusion of knee, left Primary Care Provider: Deepak Campos ED Provider: Solomon Hurtado Home Meds and New Rx's Prescriptions: No Action memantine 10 mg tablet See Rx Instructions .ROUTE .COMPLEX Qty: 180 3RF Dose Instruction: TAKE 1 TABLET BY MOUTH TWICE DAILY Rx Instructions: TAKE 1 TABLET BY MOUTH TWICE DAILY quetiapine 25 mg tablet 12.5 mg PO DAILY Qty: 45 3RF olanzapine 2.5 mg tablet 2.5 mg PO BID PRN Patient Comments: Per [facility] donepezil 10 mg tablet 10 mg PO DAILY Qty: 90 3RF levetiracetam 250 mg tablet 250 mg PO Q12H Qty: 180 3RF mirtazapine 7.5 mg tablet 7.5 mg PO QHS Qty: 90 3RF Discharge Instructions Instructions: Preventing falls in adults, Minor Contusion ED, Fainting, Adult ED Additional Instructions: Please follow-up with your primary care physician. Return to the emergency department immediately for any worsening or new concerning symptoms. Referrals: Deepak Campos, BUSINESS CONTINUITY PLANNING DIRECTOR [Primary Care Provider] - Discharge Data Discharge Date/Time-TO BE ENTERED AT DEPARTURE: 10/06/24 17:08 HPI General Mode of arrival: ambulatory . Date/Time Provider Initiated Documentation: 10/06/24 13:05 . Limitations to Documentation: no limitations . Information obtained by: patient . HPI Narrative: HISTORY OF PRESENT ILLNESS 78-year-old female with Alzheimer's disease tripped on the curb, landed on her face, and sustained a small upper lip laceration and right cheek bruise. Arrived by EMS, did not tolerate C-collar. Caregiver reports agitation and confusion post-fall, brief fainting episode with sue face, no vomiting. No anticoagulant therapy. Reports minor knee abrasion pain. Caregiver notes possible hand impact. Related Data Home Medications ?Medication ?Instructions ?Recorded ?Confirmed olanzapine 2.5 mg tablet 2.5 mg PO BID PRN 06/02/24 10/06/24 donepezil 10 mg tablet 10 mg PO DAILY #90 tabs 08/22/24 10/06/24 levetiracetam 250 mg tablet 250 mg PO Q12H #180 tabs 08/24/24 10/06/24 mirtazapine 7.5 mg tablet 7.5 mg PO QHS #90 tabs 09/10/24 10/06/24 memantine 10 mg tablet See Rx Instructions .Route 09/26/24 10/06/24 .COMPLEX #180 tabs quetiapine 25 mg tablet 12.5 mg (1/2 x 25 mg) PO DAILY #45 09/26/24 10/06/24 tabs Previous Rx's ?Medication ?Instructions ?Recorded donepezil 10 mg tablet 10 mg PO DAILY #90 tabs 08/22/24 levetiracetam 250 mg tablet 250 mg PO Q12H #180 tabs 08/24/24 mirtazapine 7.5 mg tablet 7.5 mg PO QHS #90 tabs 09/10/24 memantine 10 mg tablet See Rx Instructions .Route 09/26/24 .COMPLEX #180 tabs quetiapine 25 mg tablet 12.5 mg (1/2 x 25 mg) PO DAILY #45 09/26/24 tabs Allergies Allergy/AdvReac Type Severity Reaction Status Date / Time No Known Allergies Allergy Verified 10/06/24 12:41 General Stated Complaint: Trauma TAMEKA: 3 Exam Narrative Exam Narrative: PHYSICAL EXAM General Appearance: Normal. Vital signs: Within normal limits. HEENT: Facial trauma: bruise and mild swelling on right cheek, normal lower teeth/gums, normal lower lip, normal upper teeth/gums, small superficial laceration on upper lip with slight oozing, no deep laceration. Respiratory: Lungs clear. Cardiovascular: Heart normal rate and rhythm. Gastrointestinal: Abdomen benign. Back, Musculoskeletal: Pelvis stable. Extremities: Abrasion and mild swelling under left knee. Small abrasion on left palm, no pain with wrist flexion/extension, no significant swelling. Skin: Warm and dry, no rash. Neurological: Alert, not oriented chronic dementia. Course Vital Signs Vital signs: Vital Signs Temperature 36.7 C 10/06/24 12:29 Pulse 81 10/06/24 12:29 Respiratory Rate 20 10/06/24 12:29 Blood Pressure 124/56 L 10/06/24 12:29 Pulse Oximetry 97 10/06/24 12:29 Temperature 36.7 C 10/06/24 12:29 Pulse 81 10/06/24 12:29 Respiratory Rate 20 10/06/24 12: Respiratory Effort Normal 10/06/24 12:37 Respiratory Depth Normal 10/06/24 12:37 Respiratory Pattern Normal 10/06/24 12:37 Blood Pressure 124/56 L 10/06/24 12:29 Pulse Oximetry 97 10/06/24 12:29 Oxygen Delivery Method Room Air 10/06/24 12:29 Oxygen Flow Rate 0 10/06/24 12:29 Lab/Test Results Lab/Test Results: Laboratory Tests Range/Units 10/06/24 14:00 WBC (4.4-10.8) 10^3/uL 9.32 RBC (3.93-5.22) 10^6/uL 4.70 Hgb (11.2-15.7) g/dL 13.6 Hct (36.0-46.0) % 42.1 MCV (80-95) fL 90 MCH (27.0-33.0) pg 28.9 MCHC (32.0-36.0) % 32.3 RDW (11.7-14.6) % 13.7 Plt Count (130-400) 10^3/uL 266 MPV (8.0-11.0) fL 11.1 H Immature Gran % % 0.3 Neutrophils % % 79.2 Lymphocytes % % 14.2 Monocytes % % 5.6 Eosinophils % % 0.3 Basophils % % 0.4 Nucleated RBC % (0.0-0.3) % 0.0 Absolute Neutrophils (1.2-6.7) 10^3/uL 7.38 H Absolute Lymphocytes (1.2-3.4) 10^3/uL 1.32 Absolute Monocytes (0.1-0.8) 10^3/uL 0.52 Absolute Eosinophils (0.0-0.7) 10^3/uL 0.03 Absolute Basophils (0.0-0.2) 10^3/uL 0.04 Sodium (136-145) mmol/L 148 H Potassium (3.5-5.1) mmol/L 4.0 Chloride (98-107) mmol/L 108 H Carbon Dioxide (21.0-32.0) mmol/L 29.4 Anion Gap (3-11) mmol/L 10.6 BUN (7-18) mg/dL 17 Creatinine (0.55-1.02) mg/dL 0.7 Est GFR (CKD-EPI 2020) (mL/min/1.73m2) 89.58 Glucose (74-106) mg/dL 99 Calcium (8.5-10.1) mg/dL 8.9 Magnesium (1.8-2.4) mg/dL 2.2 Total Bilirubin (0.2-1.0) mg/dL 0.3 AST (15-37) U/L 19 ALT (14-59) U/L 28 Alkaline Phosphatase (46-116) U/L 97 Troponin I (<or=51) ng/L 5 Total Protein (6.4-8.2) g/dL 6.6 Albumin (3.4-5.0) g/dL 3.3 L Medical Decision Making ASSESSMENT AND PLAN Initial Assessment: Miss Dalton is a 78-year-old female who tripped on the curb while getting out of a car, landed on her face, and sustained a small laceration to the upper lip and a bruise to the right cheek. She experienced a fainting episode post-fall. ED Course: - Patient arrived by EMS. - Patient did not tolerate c-collar. - Physical exam: Lung sounds clear, heart sounds normal, regular rate and rhythm, pelvis stable, abdominal exam benign, left knee abrasion and mild swelling, trauma to face with bruise and mild swelling on right cheek, small superficial laceration on upper lip. - Plan to obtain CT of the chest, abdomen, pelvis to assess for acute surgical pathology given the syncope. - CT head, face, cervical spine interpreted by radiology: No acute intracranial process, no acute fracture or subluxation in the cervical spine, no acute facial fracture. - CT chest, abdomen, pelvis interpreted by radiology: No acute abnormality in the chest, abdomen, or pelvis. Large quantity of stool noted distending the rectum. - Screening EKG reviewed and interpreted by me: Sinus rhythm 68 bpm, multiple PVCs, nondiagnostic. -Considered left knee fracture versus contusion. X-ray of the left knee was interpreted by me: Degenerative changes, no fracture. Final Assessment: Miss Dalton experienced a mechanical fall resulting in facial contusion and superficial lip laceration. Diagnostic imaging and EKG were performed, revealing no acute abnormalities. She was monitored for syncope, and no acute intracranial process was found. Clinical Impression: - Mechanical fall - Facial contusion - Superficial lip laceration - Syncope -Left knee contusion Disposition: - Discharge with outpatient follow-up - Fall precautions provided MDM Components Evaluation: - Number of Differential Diagnoses or Management Options: Mechanical fall, facial contusion, superficial lip laceration, syncope - Amount and Complexity of Data Reviewed: CT head, face, cervical spine, chest, abdomen, pelvis; EKG - Risk of Complication and Morbidity or Mortality: Moderate risk due to syncope and potential for intracranial injury This document was written with the assistance of NAHEED Caruso. The patient consented to its use. Quality:SDOH Health Related Social Needs: No Data to Display [facility] All Active Problems (Updated 10/09/24 @ 07:10 by Edyta Castaneda) Contusion of knee, left (Acute) Syncope (Chronic) Contusion of face (Acute) Fall (Acute) Nonspecific paroxysmal spell (Acute) Palliative care patient (Acute) Mixed Alzheimer and vascular dementia (Chronic) Visit for suture removal (Acute) History of basal cell carcinoma (BCC) (Acute) Incontinence (Acute) Nail dystrophy (Acute) Skin lesion (Acute) Need for community resource (Chronic) Agitation due to dementia (Acute) Weight loss (Chronic) 4/8 Stable with daily boost Alzheimer disease (Chronic) Anxiety (Chronic) Hyperlipidemia (Chronic) Actinic keratosis (Chronic 06/29/17) Medical History Basal cell carcinoma (BCC) Plantar wart, right foot (06/29/17) Neck pain (02/23/17) Family history of GI malignancy colon ca Surgical History History of appendectomy History of discectomy History of spinal surgery Family History Mother Essential hypertension Personal history of malignant neoplasm LIVER METS Father Personal history of malignant neoplasm Sarcoma Maternal Grandfather Prostate cancer Paternal Grandfather Heart disease Parkinson's disease Maternal Grandmother Diabetes CHF (congestive heart failure) Heart disease Paternal Grandmother Aortic aneurysm Brother No problems noted. Brother No problems noted. Brother No problems noted. Son No problems noted. Son No problems noted. Daughter No problems noted. Social History Smoking/Tobacco Use Status: Never Second Hand Exposure: No Smoking risk assessment performed?: Yes Alcohol Intake: current Alcohol Intake frequency: a few times a month Drug use: Never Substance use type: does not use Counseling given: No Counseling provided: none Caregiver/Support person: No Housing: house Number of Children: 3 Do you need help understanding health information?: Rarely current occupation: Retired Pets and animals: No Sexually active: No Do you think of yourself as: straight/heterosexual Current gender identity: female What is your relationship status?: How often do you talk on the phone with friends or family?: three or more times per week How often do you attend worship or jewish services?: 1-3 times per year Do you belong to any clubs or organized social groups?: no Panel score (0-1 are the most socially isolated patients): 2 Keturah/Gnosticism: Restoration Seatbelt use: always Drive intox or ride w/intox city bus driver: No Victim of physical abuse: No Victim of emotional abuse: No Victim of sexual abuse: No Would you like helpful sources: No Additional Social history: pt is unable to answer
--- NOTE | 2024-10-06 16:41 | DI.RAD_ITS ---
Exam(s) XR KNEE LT 4V AP,LAT,ARCADIO,PAT EXAM: XR KNEE LT 4V AP,LAT,ARCADIO,PAT CLINICAL HISTORY: fall, pain. TECHNIQUE: 2D digital imaging was performed. Three views. COMPARISON: No exams were available for comparison FINDINGS: Exam is limiting by overlying clothing. BONES: No acute fracture is present. No bony destructive lesion is seen. Enthesophyte upper pole o f the patella. JOINTS: The knee is normally aligned. No joint effusion is seen. The joint spaces are maintained. Ch ondrocalcinosis. SOFT TISSUE: Normal. IMPRESSION: No acute abnormality. DATA REPOSITORY: RADIATION DOSE DELIVERED:
[2024-10-06 17:08] VITALS: BP 131/85; PULSE 96; RESP 16; O2SAT 98
== END 2024-10-06 17:08 | disposition home or self-care (01) ==
PROVIDERS: Emergency Provider Student in an Organized Health Care Education/Training Program; PCP Nurse Practitioner Family
DX: S01.511A Laceration without foreign body of lip, initial encounter (principal); S00.83XA Contusion of other part of head, initial encounter; S80.02XA Contusion of left knee, initial encounter; G30.9 Alzheimer's disease, unspecified; F02.80 Dementia in other diseases classified elsewhere, unspecified severity, without behavioral disturbance, psychotic disturbance, mood disturbance, and anxiety; W01.0XXA Fall on same level from slipping, tripping and stumbling without subsequent striking against object, initial encounter; Y93.89 Activity, other specified; Y92.414 Local residential or business street as the place of occurrence of the external cause
CPT/HCPCS: 74177; 80053; 93005; 99285; 70450; 70486; 71260; 72125; 73564; 83735; 84484; 85025; 93010; 99284; J3490

== ENCOUNTER 2024-12-08 12:55 | Outpatient (CLI) | payer MEDICARE, SELFPAY ==
--- NOTE | 2024-12-08 12:15 | DI.RAD_ITS ---
Exam(s) XR KNEE LT 3V AP,LAT,ARCADIO EXAM: XR KNEE LT 3V AP,LAT,ARCADIO CLINICAL HISTORY: sudden pain in knee, no known trauma, lt knee pain, M25.562. TECHNIQUE: 2D digital imaging was performed. COMPARISON: CR XR KNEE LT 4V AP,LAT,ARCADIO,PAT from 10/06/2024 FINDINGS: 3 views No evidence of acute fracture although there does appear to be a moderate size joint effusion. There is no joint space narrowing in the medial lateral compartments but there is chondrocalcinosis i n both of these compartments evident. No osteophytes. No osseous lesions. No obvious finding in pa tellofemoral compartment on the lateral view. IMPRESSION: No acute osseous findings in the knee. Chondrocalcinosis evident as well as a joint effusion. DATA REPOSITORY: RADIATION DOSE DELIVERED:
== END 2024-12-08 13:15 ==
PROVIDERS: PCP Nurse Practitioner Family; Visit Provider Nurse Practitioner Family
DX: M25.562 Pain in left knee (principal)
CPT/HCPCS: 73562

== ENCOUNTER 2025-01-23 13:05 | Outpatient (CLI) | payer MEDICARE, SELFPAY ==
--- NOTE | 2025-01-23 11:45 | DI.RAD_ITS ---
Exam(s) XR ABDOMEN FLAT UPRIGHT EXAM: 2D digital imaging was performed. CLINICAL HISTORY: abd pain, constipation, K59.00. COMPARISON: CT CT CHEST/ABD/PEL W from 10/06/2024 TECHNIQUE: Supine and upright views of the abdomen was performed. Three images were obtained. FINDINGS: LUNG BASES: Clear. BOWEL GAS PATTERN: Nondistended. There is a moderate amount of stool seen in the rectal vault. There is stool also seen in the colon particularly the ascending and transverse colon. FREE AIR: None. CALCIFICATIONS: No radiopaque calcifications. OSSEOUS STRUCTURES: Normal for age. OTHER FINDINGS: None. IMPRESSION: There is a moderate amount of stool seen in the rectal vault and fecal impaction should be considered. There is stool seen elsewhere in the colon. DATA REPOSITORY: RADIATION DOSE DELIVERED:
== END 2025-01-23 13:25 ==
LOC: DI 13:05
PROVIDERS: PCP Nurse Practitioner Family; Visit Provider Nurse Practitioner Family
DX: K59.00 Constipation, unspecified (principal)
CPT/HCPCS: 74019

== ENCOUNTER → 2025-03-23 10:26 | Outpatient (BNVA) | payer MEDICARE, SELFPAY | PROVIDERS: PCP Nurse Practitioner Family; Referring Provider Nurse Practitioner Family; Visit Provider Physician Assistant | DX: M11.262 Other chondrocalcinosis, left knee (principal); M79.89 Other specified soft tissue disorders; R22.42 Localized swelling, mass and lump, left lower limb | CPT/HCPCS: 99214 ==

== ENCOUNTER 2025-03-23 12:21 | Emergency (ER) | payer MEDICARE, SELFPAY ==
[2025-03-23 12:36] VITALS: BP 119/82; PULSE 95; RESP 16; TEMP 36.6; O2SAT 98
--- NOTE | 2025-03-23 13:05 | W.ED.GENAD ---
Discharge Plan Disposition Patient Disposition: Home Condition: Stable Discharge Details Clinical Impression: DVT (deep venous thrombosis), Leg swelling Primary Care Provider: Deepak Campos ED Provider: Honey Puente Home Meds and New Rx's Prescriptions: New Eliquis 5 mg tablet 5 mg PO BID Qty: 30 0RF Rx Instructions: 10mg once a day for one week then 5mg once day Continued memantine 10 mg tablet See Rx Instructions .ROUTE .COMPLEX Qty: 180 3RF Dose Instruction: TAKE 1 TABLET BY MOUTH TWICE DAILY Rx Instructions: TAKE 1 TABLET BY MOUTH TWICE DAILY quetiapine 25 mg tablet 12.5 mg PO DAILY Qty: 45 3RF olanzapine 2.5 mg tablet 2.5 mg PO BID PRN Patient Comments: Per [facility] nystatin 100,000 unit/gram cream 1 applic topical BID Qty: 30 4RF donepezil 10 mg tablet 10 mg PO DAILY Qty: 90 3RF levetiracetam 250 mg tablet 250 mg PO Q12H Qty: 180 3RF mirtazapine 7.5 mg tablet 7.5 mg PO QHS Qty: 90 3RF Discontinued celecoxib [Celebrex] 100 mg capsule 100 mg PO BID Qty: 60 5RF Discharge Instructions Instructions: Taking oral medicines for blood clots, Deep Vein Thrombosis (DVT) ED Additional Instructions: As we discussed, your exam and labs are concerning for a blood clot. You will still require an outpatient ultrasound and we will try to get this appointment as soon as possible. Please continue to elevate the leg. You may use Tylenol as needed for discomfort. Please stop the Celebrex while you are on the blood thinners. You are given 1 dose of Eliquis here today, next dose will be tomorrow morning. This has been sent to your pharmacy. Please make sure to pay attention to the dosing as it is 10 mg, or 2 pills, for the first week followed by 5 mg daily after that. Your primary care will be able to tell you when this medication may be stopped with you will likely need to be on this medication for at least the next 3 months. Blood thinners to increase your risk for bleeding so if you fall and hit your head or develop any spontaneous bleeding, please seek the care of emergency department once again. If you develop any other new or worsening symptoms please seek care urgently once again. Otherwise, please follow-up with your primary care next week for reevaluation. We will call you to schedule follow up ultrasound. Referrals: Deepak Campos NP [Primary Care Provider, Medicine] Discharge Orders Other Ambulatory Orders: US lower extremity venous LT (ONCE) Timeframe: [id number] Facility: [facility] - Location: DIAGNOSTIC IMAGING Ordered By: Katie PEREZ General Date/Time Provider Initiated Documentation: 03/23/25 12:25. Limitations to Documentation: no limitations. Information obtained by: patient, family (home care provider) and RN notes reviewed. History of Present Illness 79 year old F presents to the emergency department with the chief complaint of left leg swelling and painful, described as moderate, Patient started experiencing this week(s) and it has been constant. No relieving factors improve symptom(s), No exacerbating factors reported . Patient notes no other symptoms.. Patient did receive the following treatments prior to arrival, none Related Data Home Medications ?Medication ?Instructions ?Recorded ?Confirmed olanzapine 2.5 mg tablet 2.5 mg PO BID PRN 06/02/24 03/23/25 donepezil 10 mg tablet 10 mg PO DAILY #90 tabs 08/22/24 03/23/25 levetiracetam 250 mg tablet 250 mg PO Q12H #180 tabs 08/24/24 03/23/25 mirtazapine 7.5 mg tablet 7.5 mg PO QHS #90 tabs 09/10/24 03/23/25 memantine 10 mg tablet See Rx Instructions .Route 09/26/24 03/23/25 .COMPLEX #180 tabs quetiapine 25 mg tablet 12.5 mg (1/2 x 25 mg) PO DAILY #45 09/26/24 03/23/25 tabs nystatin 100,000 unit/gram topical 1 applic topical BID #30 grams 03/14/25 03/23/25 cream apixaban 5 mg tablet (Eliquis) 5 mg PO BID #30 tabs 03/23/25 Previous Rx's ?Medication ?Instructions ?Recorded donepezil 10 mg tablet 10 mg PO DAILY #90 tabs 08/22/24 levetiracetam 250 mg tablet 250 mg PO Q12H #180 tabs 08/24/24 mirtazapine 7.5 mg tablet 7.5 mg PO QHS #90 tabs 09/10/24 memantine 10 mg tablet See Rx Instructions .Route 09/26/24 .COMPLEX #180 tabs quetiapine 25 mg tablet 12.5 mg (1/2 x 25 mg) PO DAILY #45 09/26/24 tabs nystatin 100,000 unit/gram topical 1 applic topical BID #30 grams 03/14/25 cream apixaban 5 mg tablet (Eliquis) 5 mg PO BID #30 tabs 03/23/25 Allergies Allergy/AdvReac Type Severity Reaction Status Date / Time No Known Allergies Allergy Verified 03/23/25 10:50 General Stated Complaint: Orthopedic TAMEKA: 4 Review of Systems Narrative: limited d/t patients baseline confusion Constitutional Constitutional: Reports as per HPI, Denies chills, Denies fever(s) and Denies weakness Cardiovascular Cardiovascular: Reports as per HPI Respiratory Respiratory: Reports as per HPI and Denies cough Musculoskeletal Musculoskeletal: Reports as per HPI and Denies tingling Integumentary/Breasts Skin/Breast: Reports as per HPI, Denies rash and Denies wounds Neurologic Neurologic: Reports as per HPI, Denies tingling, Denies paresthesias and Denies weakness Exam Const General: cooperative, healthy appearing, comfortable, no acute distress, well developed, well groomed and other (confused) Nutritional Appearance: average body habitus and well nourished Orientation: alert and awake Resp Effort & Inspection: normal respiratory effort, able to speak in complete sentences and no respiratory distress Auscultation: clear to auscultation bilaterally Cardio Rate: regular rate Rhythm: regular rhythm Heart Sounds: S1 normal and S2 normal GI Inspection: normal to inspection Palpation: soft, no hepatosplenomegaly, nontender and No ascites Skin General skin exam: no rashes or lesions noted Lesions: no lesions Rashes: no rashes Trauma: no lacerations or abrasions Neuro General: patient alert and patient awake Speech: speech normal Gait: normal gait Motor: muscle tone normal throughout Sensory Exam: no sensory deficits noted Extrem General: capillary refill normal, calf tenderness on the left and other (Circumferential edema from ankle to mid thigh left leg) Course Vital Signs Vital signs: Vital Signs Temperature 36.6 C 03/23/25 12:36 Pulse 95 H 03/23/25 12:36 Respiratory Rate 16 03/23/25 12:36 Blood Pressure 119/82 03/23/25 12:36 Pulse Oximetry 98 03/23/25 12:36 Temperature 36.6 C 03/23/25 12:36 Pulse 95 H 03/23/25 12:36 Respiratory Rate 16 03/23/25 12:36 Blood Pressure 119/82 03/23/25 12:36 Pulse Oximetry 98 03/23/25 12:36 Pain Level 5 03/23/25 12:36 Medical Decision Making Patient is a pleasantly confused 79 year old female, brought in by home care provider, with c/ cof LLE swelling. Initially seen by ortho today who called report as well. She has had knee pain for several months but only more recently, in past few weeks, has she had any swelling. Home care proivder advised that swellin gis up to the thigh and pain is prominently been posterior knee and lateral side of the leg. She never had symptoms like this historically. Denies any fevers or chills. No systemic illness. Denies any previous episodes. No erythema. No trauma. Past medical history is significant for Alzheimer's and vascular dementia and, basal cell carcinoma, hyperlipidemia, anxiety, palliative care patient On exam, patient appears nontoxic. Resting comfortably in no acute distress. She is denying pain currently. She denies any shortness of breath, care provider advises that she has not noted any increased exertional dyspnea. No evidence at this time for pulmonary emboli. Exam left lower extremity reveals to be circumferentially swollen to the mid or upper thigh. No erythema or warmth. No palpable cord. Spoke with daughter who advised that she has had syncope in the past but nothing since the onset of the leg [id number]. She was seen by neurology, had an EEG and was started on antiepileptic- unclear if truly a seizure or not. As she is not had any further episodes, more recently since the onset of the leg swelling, I do not see evidence to suggest that this may have been associated with a massive PE, right-sided heart dysfunction feels likely unrelated. US technology is short staff currently, unclear if we will be able to get DVT study today. May need to get study as an outpatient. Will screen with d-dimer. Labs reviewed. No leukocytosis. Stable H&H. D-dimer is 7000. Labs otherwise unremarkable. We were not able to obtain a DVT study today as medical delivery technician is no longer available. Given the patient's swelling, her history of being sedentary, swelling of the knee, positive Homans exam, posterior knee tenderness, believe that treating for DVT at this time is appropriate. I did discuss with the patient, her caregiver and her daughter, via phone, the risk and benefit of anticoagulation and feel that at this point, the benefit of the medication outweighs the risk of the anticoagulation. Her home care provider reports that she is not at high risk of fall, her does fall frequently but she feels that patient is fairly sedentary and should be safe on the medication. We can arrange for her to come back on Wednesday for reevaluation and outpatient ultrasound. This order has been placed. Return precautions were discussed. Again, at this time I do not see evidence to suggest a pulmonary emboli or hemodynamic compromise associated with a DVT. Feel that outpatient management is appropriate at this point. First dose of Eliquis was given to her here, rest has been sent to the pharmacy. I have also asked that she follow-up with primary care next week for reevaluation and to keep discussed continued management of the anticoagulation. All of her questions or concerns were addressed and they are in agreement this plan. Dictation completed using [employer] dictation software. Please excuse any errors or anatomy and physiology instructor anomalies that may remain. PFSH All Active Problems (Updated 03/23/25 @ 16:03 by BUD Smith) Leg swelling (Acute) DVT (deep venous thrombosis) (Chronic) Left leg swelling (Acute) Chondrocalcinosis of left knee (Acute) Frailty (Acute) Frequent falls (Acute) Left knee pain (Acute) Nonspecific paroxysmal spell (Acute) Palliative care patient (Acute) Mixed Alzheimer and vascular dementia (Chronic) History of basal cell carcinoma (BCC) (Acute) Incontinence (Acute) Nail dystrophy (Acute) Skin lesion (Acute) Need for community resource (Chronic) Agitation due to dementia (Acute) Weight loss (Chronic) 4/8 Stable with daily boost Alzheimer disease (Chronic) Anxiety (Chronic) Hyperlipidemia (Chronic) Actinic keratosis (Chronic 06/29/17) Medical History (Updated 03/23/25 @ 16:03 by BUD Smith) Constipation Visit for suture removal Basal cell carcinoma (BCC) Plantar wart, right foot (06/29/17) Neck pain (02/23/17) Family history of GI malignancy colon ca Surgical History History of appendectomy History of discectomy History of spinal surgery Family History Mother Essential hypertension Personal history of malignant neoplasm LIVER METS Father Personal history of malignant neoplasm Sarcoma Maternal Grandfather Prostate cancer Paternal Grandfather Heart disease Parkinson's disease Maternal Grandmother Diabetes CHF (congestive heart failure) Heart disease Paternal Grandmother Aortic aneurysm Brother No problems noted. Brother No problems noted. Brother No problems noted. Son No problems noted. Son No problems noted. Daughter No problems noted. Social History Smoking/Tobacco Use Status: Never Tobacco: How many years used: 0 Second Hand Exposure: No Smoking risk assessment performed?: Yes Alcohol Intake: current Alcohol Intake frequency: a few times a month Drug use: Never Substance use type: does not use Counseling given: No Counseling provided: none Caregiver/Support person: No Housing: house Number of Children: 3 Do you need help understanding health information?: Rarely current occupation: Retired Pets and animals: No Sexually active: No Do you think of yourself as: straight/heterosexual Current gender identity: female What is your relationship status?: How often do you talk on the phone with friends or family?: three or more times per week How often do you attend oriental orthodox or gnosticist services?: 1-3 times per year Do you belong to any clubs or organized social groups?: no Panel score (0-1 are the most socially isolated patients): 2 Keturah/Temple: [employer] Seatbelt use: always Drive intox or ride w/intox cdl a driver: No Victim of physical abuse: No Victim of emotional abuse: No Victim of sexual abuse: No Would you like helpful sources: No Additional Social history: pt is unable to answer
[2025-03-23 14:23] LABS: Abs Immature Grans 0.02 10^3/uL (0.0-0.06); HCT 40.7 % (36.0-46.0); HGB 13.1 g/dL (11.2-15.7); Immature Grans % 0.2 %; MCH 29.6 pg (27.0-33.0); MCHC 32.2 % (32.0-36.0); MCV 92 fL (80-95); MPV 10.2 fL (8.0-11.0); Platelet Count 308 10^3/uL (130-400); RBC 4.42 10^6/uL (3.93-5.22); RDW 14.2 % (11.7-14.6); RDW-SD 48.2 fL; WBC 9.36 10^3/uL (4.4-10.8)
[2025-03-23 14:46] LABS: ALT 32 U/L (14-59); AST 17 U/L (15-37); Albumin 3.5 g/dL (3.4-5.0); Alkaline Phosphatase 125 U/L (46-116); Anion Gap 5.5 mmol/L (3-11); BUN 28 mg/dL (7-18); Bilirubin, Total 0.3 mg/dL (0.2-1.0); CO2 31.5 mmol/L (21.0-32.0); Calcium 9.5 mg/dL (8.5-10.1); Chloride 109 mmol/L (98-107); Estimated GFR 92.39 (mL/min/1.73m2); Glucose 94 mg/dL (74-106); Potassium 4.2 mmol/L (3.5-5.1); Sodium 146 mmol/L (136-145); Total Protein 7.3 g/dL (6.4-8.2)
[2025-03-23 15:34] VITALS: BP 107/47; PULSE 54; RESP 18; O2SAT 97
[2025-03-23] MEDS: Apixaban 5 MG TAB 10 MG PO (16:18)
[2025-03-23 16:38] VITALS: BP 114/76; PULSE 78; RESP 18; O2SAT 98
[2025-03-23 16:48] LABS: INR 1.0 (0.9-1.1); PTT Activated 19.5 sec (20.6-30.2); Prothrombin Time 10.4 sec (9.1-11.1)
[2025-03-23 16:49] LABS: D-Dimer 7264 ng/mlFEU (<500)
--- NOTE | 2025-03-26 08:16 | NUR.NOTE ---
Nursing Note: received call from daughter Colleen regarding patients discharge paperwork instructions and the prescription bottle being different. Reviewed chart- discharge paperwork instructions state to take Eliquis once daily, prescrption sent in was for BID dosing. Dr. León reviewed the chart and confirmed that the patient needs to be taking this BID. Daughter verbalized understanding, patient has an ultrasound scheduled for this morning and will follow up with PCP
== END 2025-03-23 16:38 | disposition home or self-care (01) ==
PROVIDERS: Emergency Provider Physician Assistant; PCP Nurse Practitioner Family
DX: I82.402 Acute embolism and thrombosis of unspecified deep veins of left lower extremity (principal); M25.562 Pain in left knee
CPT/HCPCS: 99284 ×2; 36415; 80053; 85025; 85379; 85610; 85730

== ENCOUNTER 2025-03-26 08:14 | Outpatient (CLI) | payer MEDICARE, SELFPAY ==
--- NOTE | 2025-03-26 08:00 | DI.US_ITS ---
Exam(s) US LOWER EXTREMITY VENOUS LT EXAM: US LOWER EXTREMITY VENOUS LT CLINICAL HISTORY: R/O DVT, Leg swelling M79.89 SOFT TISSUE DISORDER TECHNIQUE: Left lower extremity venous ultrasound performed using grayscale, color-flow, and spectral Doppler analysis. COMPARISON: No exams were available for comparison FINDINGS: There is extensive occlusive thrombus involving the left lower extremity. There is involvement of the external iliac vein, the common femoral vein, the profundus and femoral veins, popliteal vein and paired posterior tibialis veins. There is thrombus seen in the proximal greater saphenous vein. There is no evidence of a Monreal cyst. The soft tissues are unremarkable. IMPRESSION: 1. Extensive thrombus from the external iliac vein through to the posterior tibial veins in the calf. 2. Findings were discussed with Dr. León at 11:02 a.m. on 03/26/2025. DATA REPOSITORY:
== END 2025-03-26 08:34 ==
LOC: DI 08:14
PROVIDERS: PCP Nurse Practitioner Family; Visit Provider Registered Nurse Emergency
DX: M79.89 Other specified soft tissue disorders (principal); I82.421 Acute embolism and thrombosis of right iliac vein
CPT/HCPCS: 93971

== ENCOUNTER 2025-03-26 10:55 | Emergency (ER) | payer MEDICARE, SELFPAY ==
[2025-03-26 10:56] VITALS: BP 151/85; PULSE 64; RESP 17; TEMP 36.6; O2SAT 95
--- NOTE | 2025-03-27 20:16 | W.ED.GENAD ---
Discharge Plan Disposition Patient Disposition: Home Condition: Stable Discharge Details Clinical Impression: DVT (deep venous thrombosis) Primary Care Provider: Deepak Campos ED Provider: Judith King Home Meds and New Rx's Prescriptions: New Eliquis 5 mg tablet 5 mg PO BID Qty: 44 0RF Continued memantine 10 mg tablet See Rx Instructions .ROUTE .COMPLEX Qty: 180 3RF Dose Instruction: TAKE 1 TABLET BY MOUTH TWICE DAILY Rx Instructions: TAKE 1 TABLET BY MOUTH TWICE DAILY quetiapine 25 mg tablet 12.5 mg PO DAILY Qty: 45 3RF olanzapine 2.5 mg tablet 2.5 mg PO BID PRN Patient Comments: Per [facility] nystatin 100,000 unit/gram cream 1 applic topical BID Qty: 30 4RF donepezil 10 mg tablet 10 mg PO DAILY Qty: 90 3RF levetiracetam 250 mg tablet 250 mg PO Q12H Qty: 180 3RF mirtazapine 7.5 mg tablet 7.5 mg PO QHS Qty: 90 3RF Eliquis 5 mg tablet 5 mg PO BID Qty: 30 0RF Rx Instructions: 10mg once a day for one week then 5mg once day Discharge Instructions Instructions: Taking oral medicines for blood clots, Deep Vein Thrombosis (DVT) ED Additional Instructions: take 10 mg twice daily for 7 days, then 5 mg twice daily for the next 3 months Deepak will follow-up for the additional supply you have received a 30 day supply in the emergency department If Linda falls and hits her head or has any injuries, she should be evaluated immediately as she has increased risk of bleeding with this medication If you notice blood in stool, increased work of breathing, chest discomfort you still should be evaluated immediately I placed a vascular surgery referral in the outpatient setting given the size of the clot If you do not hear from [facility] tomorrow my recommendation would be to follow-up with them tomorrow to schedule an appointment Referrals: Deepak Campos, [facility] [Primary Care Provider, Medicine] Discharge Data Discharge Date/Time-TO BE ENTERED AT DEPARTURE: 03/26/25 12:27 HPI General Date/Time Provider Initiated Documentation: 03/26/25 11:21. HPI Narrative: 79-year-old female presents with left leg that is swollen post ultrasound that was ordered 2 days prior to arrival today. She is currently taking Eliquis out of concern for DVT. She denies any chest pain or shortness of breath although the majority of this history was obtained from her caregiver who is in the room as patient has advanced dementia. Related Data Home Medications ?Medication ?Instructions ?Recorded ?Confirmed olanzapine 2.5 mg tablet 2.5 mg PO BID PRN 06/02/24 03/26/25 donepezil 10 mg tablet 10 mg PO DAILY #90 tabs 08/22/24 03/26/25 levetiracetam 250 mg tablet 250 mg PO Q12H #180 tabs 08/24/24 03/26/25 mirtazapine 7.5 mg tablet 7.5 mg PO QHS #90 tabs 09/10/24 03/26/25 memantine 10 mg tablet See Rx Instructions .Route 09/26/24 03/26/25 .COMPLEX #180 tabs quetiapine 25 mg tablet 12.5 mg (1/2 x 25 mg) PO DAILY #45 09/26/24 03/26/25 tabs nystatin 100,000 unit/gram topical 1 applic topical BID #30 grams 03/14/25 03/26/25 cream apixaban 5 mg tablet (Eliquis) 5 mg PO BID #30 tabs 03/23/25 03/26/25 apixaban 5 mg tablet (Eliquis) 5 mg PO BID #44 tabs 03/26/25 Previous Rx's ?Medication ?Instructions ?Recorded donepezil 10 mg tablet 10 mg PO DAILY #90 tabs 08/22/24 levetiracetam 250 mg tablet 250 mg PO Q12H #180 tabs 08/24/24 mirtazapine 7.5 mg tablet 7.5 mg PO QHS #90 tabs 09/10/24 memantine 10 mg tablet See Rx Instructions .Route 09/26/24 .COMPLEX #180 tabs quetiapine 25 mg tablet 12.5 mg (1/2 x 25 mg) PO DAILY #45 09/26/24 tabs nystatin 100,000 unit/gram topical 1 applic topical BID #30 grams 03/14/25 cream apixaban 5 mg tablet (Eliquis) 5 mg PO BID #30 tabs 03/23/25 apixaban 5 mg tablet (Eliquis) 5 mg PO BID #44 tabs 03/26/25 Allergies Allergy/AdvReac Type Severity Reaction Status Date / Time No Known Allergies Allergy Verified 03/26/25 11:02 General Stated Complaint: Vascular TAMEKA: 3 Exam Narrative Exam Narrative: Alert 79-year-old female in no respiratory distress lungs clear to auscultation vital stable no hypoxia left leg with swelling distal pulses intact discoloration Course Vital Signs Vital signs: Vital Signs Temperature 36.6 C 03/26/25 10:56 Pulse 64 03/26/25 10:56 Respiratory Rate 17 03/26/25 10:56 Blood Pressure 151/85 H 03/26/25 10:56 Pulse Oximetry 95 03/26/25 10:56 Temperature 36.6 C 03/26/25 10:56 Temperature Source Tympanic 03/26/25 10:56 Pulse 64 03/26/25 10:56 Respiratory Rate 17 03/26/25 10:56 Blood Pressure 151/85 H 03/26/25 10:56 Pulse Oximetry 95 03/26/25 10:56 Pain Level 0 03/26/25 10:56 Medical Decision Making Results: There is extensive occlusive thrombus involving the left lower extremity. There is involvement of the external iliac vein, the common femoral vein, the profundus and femoral veins, popliteal vein and paired posterior tibialis veins. There is thrombus seen in the proximal greater saphenous vein. There is no evidence of a Monreal cyst. The soft tissues are unremarkable. IMPRESSION: 1. Extensive thrombus from the external iliac vein through to the posterior tibial veins in the calf. 2. Findings were discussed with Dr. León at 11:02 a.m. on 03/26/2025. Patient made aware regarding findings on ultrasound and Eliquis was continued, she will need close outpatient reassessment she does have follow-up with Deepak Fair and her Eliquis was extended. Her respiratory exam and vitals are stable and from a PE standpoint I think her risk is quite low at this point. She will be given a vascular referral given the extent of DVT. She will need to continue on the Eliquis as prescribed, next several months and continued at the discretion of her provider. She is discharged home with her caregiver. I did speak with her daughter in detail and discussed that there is risk associated with this patient with her advanced dementia taking this medication and that at this point given her infrequent falls I think the benefit outweighs the risk with taking Eliquis. Should this change, she will need reassessment with PCP and care management. She currently resides at home with approximately 20 hours of full-time care. PFSH All Active Problems (Updated 03/26/25 @ 12:01 by BUD Gomez) DVT (deep venous thrombosis) (Chronic) Leg swelling (Acute) DVT (deep venous thrombosis) (Chronic) Left leg swelling (Acute) Chondrocalcinosis of left knee (Acute) Frailty (Acute) Frequent falls (Acute) Left knee pain (Acute) Nonspecific paroxysmal spell (Acute) Palliative care patient (Acute) Mixed Alzheimer and vascular dementia (Chronic) History of basal cell carcinoma (BCC) (Acute) Incontinence (Acute) Nail dystrophy (Acute) Skin lesion (Acute) Need for community resource (Chronic) Agitation due to dementia (Acute) Weight loss (Chronic) 8 Stable with daily boost Alzheimer disease (Chronic) Anxiety (Chronic) Hyperlipidemia (Chronic) Actinic keratosis (Chronic 06/29/17) Medical History (Updated 03/26/25 @ 12:01 by BUD Gomez) Constipation Visit for suture removal Basal cell carcinoma (BCC) Plantar wart, right foot (06/29/17) Neck pain (02/23/17) Family history of GI malignancy colon ca Surgical History History of appendectomy History of discectomy History of spinal surgery Family History Mother Essential hypertension Personal history of malignant neoplasm LIVER METS Father Personal history of malignant neoplasm Sarcoma Maternal Grandfather Prostate cancer Paternal Grandfather Heart disease Parkinson's disease Maternal Grandmother Diabetes CHF (congestive heart failure) Heart disease Paternal Grandmother Aortic aneurysm Brother No problems noted. Brother No problems noted. Brother No problems noted. Son No problems noted. Son No problems noted. Daughter No problems noted. Social History Smoking/Tobacco Use Status: Never Tobacco: How many years used: 0 Second Hand Exposure: No Smoking risk assessment performed?: Yes Alcohol Intake: current Alcohol Intake frequency: a few times a month Drug use: Never Substance use type: does not use Counseling given: No Counseling provided: none Caregiver/Support person: No Housing: house Number of Children: 3 Do you need help understanding health information?: Rarely current occupation: Retired Pets and animals: No Sexually active: No Do you think of yourself as: straight/heterosexual Current gender identity: female What is your relationship status?: How often do you talk on the phone with friends or family?: three or more times per week How often do you attend confucianist or protestant services?: 1-3 times per year Do you belong to any clubs or organized social groups?: no Panel score (0-1 are the most socially isolated patients): 2 Keturah/Church: Gnosticism Seatbelt use: always Drive intox or ride w/intox national van truck driver: No Victim of physical abuse: No Victim of emotional abuse: No Victim of sexual abuse: No Would you like helpful sources: No Additional Social history: pt is unable to answer
== END 2025-03-26 12:27 | disposition home or self-care (01) ==
LOC: ER 12:28
PROVIDERS: Emergency Provider Physician Assistant; PCP Nurse Practitioner Family
DX: I82.422 Acute embolism and thrombosis of left iliac vein (principal); E78.5 Hyperlipidemia, unspecified; G30.9 Alzheimer's disease, unspecified; F02.80 Dementia in other diseases classified elsewhere, unspecified severity, without behavioral disturbance, psychotic disturbance, mood disturbance, and anxiety; F01.50 Vascular dementia, unspecified severity, without behavioral disturbance, psychotic disturbance, mood disturbance, and anxiety
CPT/HCPCS: 99283

== ENCOUNTER 2025-05-03 12:28 | Outpatient (REF) | payer MEDICARE, SELFPAY ==
[2025-05-03 16:36] LABS: Glucose Negative (Negative)
[2025-05-03 16:50] LABS: C & S Indicated? Yes; RBC Negative HPF (0-2); WBC 20-50 HPF (0-5)
== END 2025-05-03 12:29 | disposition home or self-care (01) ==
LOC: LBN 12:28
PROVIDERS: PCP Nurse Practitioner Family; Visit Provider Nurse Practitioner Family
DX: R41.82 Altered mental status, unspecified (principal)
CPT/HCPCS: 87077; 81003; 81015; 87086; 87186